=== PATIENT | male | born 1950 | race Caucasian/White ===

== ENCOUNTER 2016-12-09 08:58 | Emergency (ER) | payer MEDICARE, OTHER ==
[~2016-12-09] VITALS: Ht 177.8 cm; Wt 107.3 kg
[~2016-12-09 08:58] MED LIST: ASPI325T4 PO; ERGO500017 PO; ESCI10TA10 PO; METF500T4 PO; NAPR220T29 PO; OMEG1CAP2 PO; OMEP-110 PO; ROSU10TA PO; [UNRECOGNIZED DRUG - OTHER] PO
[2016-12-09 12:28] VITALS: BP 124/68
== END 2016-12-09 12:31 | disposition home or self-care (01) ==
LOC: ED 10:59
DX: N99.842 Postprocedural seroma of a genitourinary system organ or structure following a genitourinary system procedure (principal); E11.9 Type 2 diabetes mellitus without complications; E78.5 Hyperlipidemia, unspecified; I25.2 Old myocardial infarction; Z87.891 Personal history of nicotine dependence; Z95.5 Presence of coronary angioplasty implant and graft
CPT/HCPCS: 76870; 93975; 99284